=== PATIENT | female | born 1960 | race Caucasian/White ===

== ENCOUNTER 2016-04-29 11:09 | Emergency (ER) | payer OTHER ==
[2016-04-29 11:45] VITALS: BP 133/89
--- NOTE | 2016-04-29 13:15 | UC ---
Lower Extremity/Ankle HPI - HPI Summary HPI Summary: PT HAS HAD INTERMITTENT BILATERAL LOWER LEG AND FOOT TINGLING OVER THE PAST SEVERAL YEARS. 2 MONTHS AGO HAD INTENSE, SEVERE MUSCLE CRAMP RIGHT UPPER INNER THIGH THAT LASTED ABOOUT 2 MINUTES. HAPPENED AGAIN LAST NIGHT. PT WAS UNABLE TO SUPPORT HER WEIGHT. STILL FEELS LIKE THE MUSCLES ARE SORE. DENIES ANY TRAUMA OR INJURY. IS TRYING TO MAKE SURE SHE IS HYDRATING ADEQUATELY. PARESTHESIAS IN FEET AHVE BEEN WORSE OVER THE PAST FEW DAYS. - History of Current Complaint Chief Complaint: UCLowerExtremity Stated Complaint: LEG COMPLAINT Time Seen by Provider: 04/29/16 12:55 Hx Obtained From: Patient Onset/Duration: Gradual Onset, Lasting Weeks, Still Present Severity Initially: Mild Severity Currently: Mild Pain Intensity: 2 Pain Scale Used: 0-10 Numeric Aggravating Factor(s): Nothing Alleviating Factor(s): Rest Able to Bear Weight: Yes - Allergies/Home Medications Allergies/Adverse Reactions: Allergies Allergy/AdvReac Type Severity Reaction Status Date / Time No Known Allergies Allergy Verified 04/10/16 14:15 PMH/Surg Hx/FS Hx/Imm Hx Previously Healthy: Yes - Surgical History Surgical History: Yes Surgery Procedure, Year, and Place: TUBAL LIGATION 1985. CARPAL TUNNEL SURGERY 1986 - Family History Known Family History: Negative: Respiratory Disease - Social History Alcohol Use: Weekly Alcohol Amount: 2 beers 3x's weekly Substance Use Type: None Smoking Status (MU): Never Smoked Tobacco Have You Smoked in the Last Year: No - Immunization History Most Recent Influenza Vaccination: 2016 Most Recent Tetanus Shot: UTD Review of Systems Constitutional: Negative Skin: Negative Respiratory: Negative Cardiovascular: Negative Gastrointestinal: Negative Neurological: Paresthesia All Other Systems Reviewed And Are Negative: Yes Physical Exam Triage Information Reviewed: Yes Appearance: Well-Appearing, No Pain Distress, Well-Nourished Vital Signs: Initial Vital Signs Temp 98.6 F 04/29/16 11:37 Pulse 74 04/29/16 11:37 Resp 18 04/29/16 11:37 BP 133/89 04/29/16 11:37 Pulse Ox 100 04/29/16 11:37 Vital Signs Reviewed: Yes Eyes: Positive: Conjunctiva Clear ENT: Positive: Hearing grossly normal Neck: Positive: Supple Respiratory: Positive: No respiratory distress, No accessory muscle use Cardiovascular: Positive: Pulses Normal Abdomen Description: Positive: Soft Musculoskeletal: Positive: ROM Intact, No Edema, Other: - MILDLY TENDER RIGHT UPPER INNER THIGH Neurological: Positive: Alert Psychological: Positive: Age Appropriate Behavior Skin: Negative: rashes Lower Extremity Course/Dx - Differential Dx/Diagnosis Differential Diagnosis/HQI/PQRI: Other - PERIPHERAL NEUROPATHY, RESTLESS LEGS Provider Diagnoses: LEG CRAMPS Discharge - Discharge Plan Condition: Stable Disposition: HOME Prescriptions: Cyclobenzaprine TAB* [Flexeril TAB*] 10 mg PO TID PRN #30 tab PRN Reason: Pain Patient Education Materials: Leg Cramps (ED) Referrals: Severo Gallegos MD [Primary Care Provider] - As Soon As Possible Additional Instructions: FOLLOW-UP WITH YOUR PCP FOR FURTHER EVALUATION. YOU WOULD LIKELY BENEFIT FROM LAB WORK. BE SURE TO STAY WELL HYDRATED. STRETCH. OTC NSAIDS NEEDED.
== END 2016-04-29 13:24 | disposition home or self-care (01) ==
LOC: UCEAST 11:09
DX: R25.2 Cramp and spasm (principal); M79.651 Pain in right thigh
CPT/HCPCS: 99211; G0463

== ENCOUNTER 2016-06-24 15:58 | Emergency (ER) | payer OTHER ==
[2016-06-24 16:09] VITALS: BP 138/73
--- NOTE | 2016-06-24 16:16 | UC ---
Hand/Wrist HPI - HPI Summary HPI Summary: Hit her right middle finger with the blunt end of an axe this morning while chopping wood. Has been icing her finger since injuring it but wants to know if she needs to do anything else. - History Of Current Complaint Chief Complaint: UCUpperExtremity Stated Complaint: FINGER INJURY Time Seen by Provider: 06/24/16 16:10 Hx Obtained From: Patient Mechanism Of Injury: Blunt end of axe handle Onset/Duration: Sudden Onset Severity Initially: Moderate Severity Currently: Moderate Character Of Pain: Throbbing Aggravating Factor(s): Movement, Flexion Alleviating: Ice Associated Signs And Symptoms: Positive: Redness, Bruising - Allergies/Home Medications Allergies/Adverse Reactions: Allergies Allergy/AdvReac Type Severity Reaction Status Date / Time No Known Allergies Allergy Verified 04/10/16 14:15 PMH/Surg Hx/FS Hx/Imm Hx Previously Healthy: Yes Endocrine History Of: Denies: Diabetes, Thyroid Disease Cardiovascular History Of: Denies: Cardiac Disorders, Hypertension Respiratory History Of: Denies: COPD, Asthma GI/ History Of: Denies: Ulcer - Surgical History Surgical History: Yes Surgery Procedure, Year, and Place: TUBAL LIGATION 1985. CARPAL TUNNEL SURGERY 1986 - Family History Known Family History: Negative: Respiratory Disease - Social History Lives: With Family Alcohol Use: Occasionally Alcohol Amount: 2 beers 3x's weekly Substance Use Type: None Smoking Status (MU): Never Smoked Tobacco Have You Smoked in the Last Year: No - Immunization History Most Recent Influenza Vaccination: 2016 Most Recent Tetanus Shot: UTD Review of Systems Constitutional: Negative Skin: Bruising - Right middle finger by the DIP joint Eyes: Negative ENT: Negative Respiratory: Negative Cardiovascular: Negative Gastrointestinal: Negative Genitourinary: Negative Motor: Negative Neurovascular: Negative Musculoskeletal: Edema - Right third finger redness with slight swelling Neurological: Negative Psychological: Negative All Other Systems Reviewed And Are Negative: Yes Physical Exam Triage Information Reviewed: Yes Appearance: Well-Appearing, No Pain Distress, Well-Nourished Vital Signs: Initial Vital Signs Temp 98.2 F 06/24/16 16:06 Pulse 76 06/24/16 16:06 Resp 16 06/24/16 16:06 BP 138/73 06/24/16 16:06 Pulse Ox 100 06/24/16 16:06 Vital Signs Reviewed: Yes Eye Exam: Normal Eyes: Positive: Conjunctiva Clear ENT Exam: Normal ENT: Positive: Normal ENT inspection Neck exam: Normal Respiratory Exam: Normal Respiratory: Positive: Chest non-tender, Lungs clear, Normal breath sounds Cardiovascular Exam: Normal Cardiovascular: Positive: RRR, No Murmur Musculoskeletal Exam: Other Musculoskeletal: Positive: ROM Limited @ - Right middle finger. Pain with flexion and limited movement., Edema @ - Right middle finger Neurological Exam: Normal Neurological: Positive: Alert Psychological Exam: Normal Psychological: Positive: Age Appropriate Behavior Skin Exam: Normal Hand/Wrist Course/Dx - Course Course Of Treatment: This is a crushing injury of the right third finger at the DIP joint. We will provide a splint for comfort. She is to take it off when her finger is feeling better. We have instructed her to continue icing her finger, and to take an anti-inflammatory such as Ibuprofen for pain. - Differential Dx/Diagnosis Differential Diagnosis/HQI/PQRI: Contusion, Dislocation, Fracture Provider Diagnoses: Crushing injury of right third finger Discharge - Discharge Plan Condition: Stable Disposition: HOME Patient Education Materials: Crush Injury (ED) Print Language: MONGOLIAN Referrals: Severo Gallegos MD [Primary Care Provider] - Additional Instructions: This is most likely a crush injury. Preliminary x-ray findings show no acute changes. Radiology will officially read the x-ray later. We will call you if there are any changes. Wear the splint for comfort, and remove when your finger is no longer causing pain. Take an anti-inflammatory such as Ibuprofen for pain.
--- NOTE | 2016-06-24 16:59 | RAD ---
INDICATION: Crush injury to the right middle finger TECHNIQUE: 3 views of the right middle finger were obtained. FINDINGS: The bones are normal alignment. Joint spaces appear maintained. No fracture is seen. IMPRESSION: NO EVIDENCE FOR FRACTURE, IF THE PATIENT'S SYMPTOMS PERSIST RECOMMEND FOLLOW-UP IMAGING.
== END 2016-06-24 17:07 | disposition home or self-care (01) ==
LOC: UCEAST 15:58
DX: S67.192A Crushing injury of right middle finger, initial encounter (principal); W22.8XXA Striking against or struck by other objects, initial encounter; Y93.89 Activity, other specified; Y92.9 Unspecified place or not applicable
CPT/HCPCS: 73140; 99212; G0463

== ENCOUNTER 2018-06-09 16:08 | Emergency (ER) | payer BC ==
[2018-06-09 16:27] VITALS: BP 103/65
--- NOTE | 2018-06-09 16:49 | UC ---
Dental HPI - HPI Summary HPI Summary: 57 yo female presents with right upper tooth pain for the last 2 days. Today pain was worse and she felt a bump on her cheek and on her gums. She admits that she has bad teeth and thinks she may have an infection. She is able to eat and drink, but has pain. Denies fever or chills. - History of Current Complaint Chief Complaint: UCDentalProblem Stated Complaint: TOOTHACHE Time Seen by Provider: 06/09/18 16:49 Hx Obtained From: Patient Onset/Duration: Gradual Onset Severity: Severe Pain Intensity: 9 Pain Scale Used: 0-10 Numeric - Allergies/Home Medications Allergies/Adverse Reactions: Allergies Allergy/AdvReac Type Severity Reaction Status Date / Time NSAIDS (Non-Steroidal Allergy Unknown Verified 06/09/18 16:27 Anti-Inflamma Reaction Details Home Medications: Home Medications Acetaminophen [Tylenol] 325 mg PO DAILY 06/09/18 [History Confirmed 06/09/18] Docusate Sodium [Colace] 100 mg PO DAILY 06/09/18 [History Confirmed 06/09/18] Pentazaprol 06/09/18 [History] Ursodiol CAP* [Actigall CAP 300 MG*] 300 mg PO DAILY 06/09/18 [History Confirmed 06/09/18] PMH/Surg Hx/FS Hx/Imm Hx GI/ History: Gastroesophageal Reflux - Surgical History Surgical History: Yes Surgery Procedure, Year, and Place: TUBAL LIGATION 1985. CARPAL TUNNEL SURGERY 1986. bariatric 2018 - Family History Known Family History: Negative: Respiratory Disease - Social History Lives: With Family Alcohol Use: None Alcohol Amount: 2 beers 3x's weekly Substance Use Type: None Smoking Status (MU): Never Smoked Tobacco Have You Smoked in the Last Year: No - Immunization History Most Recent Influenza Vaccination: 2016 Most Recent Tetanus Shot: UTD Review of Systems All Other Systems Reviewed And Are Negative: Yes Constitutional: Positive: Negative Skin: Positive: Negative ENT: Positive: Dental Pain Respiratory: Positive: Negative Cardiovascular: Positive: Negative Neurological: Positive: Negative Psychological: Positive: Negative Physical Exam - Summary Physical Exam Summary: GENERAL: NAD. WDWN. No pain distress. SKIN: No rashes, sores, lesions, or open wounds. HEENT: Head: AT/NC Nose: Nasal mucosa pink and moist. NTTP maxillary and frontal sinus. Throat: Posterior oropharynx without exudates, erythema, or tonsillar enlargement. Uvula midline. NECK: Supple. Nontender. No lymphadenopathy. CHEST: No accessory muscle use. Breathing comfortably and in no distress. CV: Pulses intact. Cap refill <2seconds NEURO: Alert. PSYCH: Age appropriate behavior. Triage Information Reviewed: Yes Vital Signs: Initial Vital Signs Temp 99.1 F 06/09/18 16:23 Pulse 97 06/09/18 16:23 Resp 16 06/09/18 16:23 BP 103/65 06/09/18 16:23 Pulse Ox 97 06/09/18 16:23 Vital Signs Reviewed: Yes Dental: Positive: Percussion Tenderness @ - Tooth #3, Gross Decay/Caries @ - Troughout, Abscess @ - Tooth #3. Negative: Cellulitis @, Cervical Lymphadenopathy, Bleeding Dental Complaint Course/Dx - Course Course Of Treatment: Tooth #3 abscess - Differential Dx/Diagnosis Provider Diagnosis: Dental abscess Discharge - Sign-Out/Discharge Documenting (check all that apply): Patient Departure All imaging exams completed and their final reports reviewed: No Studies - Discharge Plan Condition: Stable Disposition: HOME Prescriptions: Amoxicillin PO (*) [Amoxicillin 500 MG CAP*] 500 mg PO Q12H #14 cap Chlorhexidine MW 0.12% 473ML* [Peridex Mouth Wash 0.12%] 15 ml MT BID #1 bottle Patient Education Materials: Dental Abscess (ED) Referrals: Severo Gallegos MD [Primary Care Provider] - Additional Instructions: If you develop a fever, shortness of breath, chest pain, new or worsening symptoms - please call your PCP or go to the ED. - Billing Disposition and Condition Condition: STABLE Disposition: Home - Attestation Statements Provider Attestation: I was available for consult. This patient was seen by the HU. The patient was not presented to, seen by, or examined by me. -Rosalba
== END 2018-06-09 17:00 | disposition home or self-care (01) ==
LOC: UCEAST 16:08
DX: K04.7 Periapical abscess without sinus (principal); K21.9 Gastro-esophageal reflux disease without esophagitis; Z88.8 Allergy status to other drugs, medicaments and biological substances; Z79.899 Other long term (current) drug therapy
CPT/HCPCS: 99212; G0463